=== PATIENT | female | born 1955 | race Two or more races ===

== ENCOUNTER 2017-12-12 12:09 | Outpatient (CLI) | payer MEDICARE, MEDICAID ==
--- NOTE | 2017-12-12 13:15 | Diagnostic Imaging Report ---
Indication: Shortness of breath Technique: 2 views of the chest Comparison: None Findings: There is a calcified granuloma at the left lateral lung base. The lungs and pleural spaces are clear. There is some atelectasis at the left lateral lung base. The heart size is normal. Impression: No acute process Evidence of old granulomatous disease
== END 2017-12-12 14:09 | disposition home or self-care (01) ==
LOC: RAD 12:09
DX: R06.02 Shortness of breath (principal); J98.11 Atelectasis
CPT/HCPCS: 71046